=== PATIENT | female | born 1990 | race Asian ===

== ENCOUNTER → 2021-06-15 07:48 | Outpatient (CLI) | payer BC, SELFPAY ==
[2021-06-15 08:52] LABS: hCG Titer Quant., Serum 979 mIU/mL (1-3)
== END ==
PROVIDERS: Visit Provider Obstetrics & Gynecology
DX: N91.2 Amenorrhea, unspecified (principal)
CPT/HCPCS: 36415; 84702

== ENCOUNTER → 2021-06-18 13:14 | Outpatient (CLI) | payer BC, SELFPAY ==
[2021-06-18 16:10] LABS: hCG Titer Quant., Serum 3583 mIU/mL (1-3)
== END ==
PROVIDERS: Referring Provider Obstetrics & Gynecology; Visit Provider Obstetrics & Gynecology
DX: N91.2 Amenorrhea, unspecified (principal)
CPT/HCPCS: 36415; 84702

== ENCOUNTER → 2021-07-04 11:18 | Outpatient (CLI) | payer BC, SELFPAY ==
--- NOTE | 2021-07-04 11:19 | US_ITS ---
STUDY: FIRST TRIMESTER OBSTETRICAL ULTRASOUND REASON FOR EXAM: Female, 30 years old viability; r/o ectopic LMP: 05/10/2021 TECHNIQUE: Transvaginal TECHNICAL QUALITY: Adequate. PRIOR ULTRASOUND: None. FINDINGS: There is visualization of a single gestational sac in a normal intrauterine position. The mean sac diameter (MSD) measures 28 mm, indicating an estimated gestational age (EGA) of 8 weeks, 0 days. The gestational sac shape is within normal limits. There is a visualized yolk sac. The yolk sac measures 3 mm. The placenta is non-visualized. There is visualization of a live embryo. The crown-rump length (CRL) measures 13 mm, indicating an estimated gestational age (EGA) of 7 weeks, 4 days. There is demonstrated cardiac activity with a heart rate of 137 bpm. The estimated gestation age (EGA) by LMP is 7 weeks, 6 days. The estimated date of delivery (CHIKIS) by LMP is 02/14/2022. The estimated gestation age (EGA) by US is 7 weeks, 6 days. The estimated date of delivery (CHIKIS) by US is 02/14/2022. The uterus measures 8.5 x 6.3 x 6.8 cm. There is no demonstrated uterine fibroid. The cervix is closed. The right ovary measures 3.3 x 2.5 x 3.0 cm. There is no right ovarian cyst. There is no visualized right adnexal mass or complex lesion. The left ovary measures 2.7 x 1.4 x 2.2 cm. There is no left ovarian cyst. There is no visualized left adnexal mass or complex lesion. There is no fluid in the cul de sac. US/Transvaginal w/Preg US IMPRESSION: Living intrauterine of 7 weeks 6 days as described above. Electronically Signed: Akash Ray MD at 13:08 EDT Tel , Service support ,
== END ==
PROVIDERS: Referring Provider Nurse Practitioner Women's Health; Visit Provider Nurse Practitioner Women's Health
DX: Z34.91 Encounter for supervision of normal pregnancy, unspecified, first trimester (principal)
CPT/HCPCS: 76817

== ENCOUNTER → 2021-07-17 | Outpatient (CLI) | payer BC, SELFPAY ==
[2021-07-17 18:35] LABS: Amphetamine Urine VISTA NEGATIVE (<1000 ng/mL); Barbiturate Urine VISTA NEGATIVE (< 200 ng/mL); Benzodiazepine Urine VISTA NEGATIVE (< 200 ng/mL); Cocaine Urine VISTA NEGATIVE (< 300 ng/mL); Ecstacy Urine VISTA NEGATIVE (< 500 ng/mL); Methadone Urine VISTA NEGATIVE (< 300 ng/mL); PCP Urine VISTA NEGATIVE (< 25 ng/mL); THC Urine VISTA NEGATIVE (< 50 ng/mL); Vista UDS pH Range 4
[2021-07-20 22:06] LABS: Chlamydia By Nucleic Acid AMP Negative (Negative)
[2021-07-21 07:40] LABS: Gonococcus By Nucleic Acid AMP Negative (Negative)
[2021-07-22 17:56] LABS: HPV APTIMA, High Risk Negative (Negative)
== END | disposition home or self-care (01) ==
PROVIDERS: Referring Provider Obstetrics & Gynecology; Visit Provider Obstetrics & Gynecology
DX: O99.619 Diseases of the digestive system complicating pregnancy, unspecified trimester (principal); K21.9 Gastro-esophageal reflux disease without esophagitis; Z3A.00 Weeks of gestation of pregnancy not specified
CPT/HCPCS: 80307; 87086; 87088; 87491; 87591; 87624; 88175; G0145

== ENCOUNTER → 2021-07-25 08:21 | Outpatient (CLI) | payer BC, SELFPAY ==
[2021-07-25 09:09] LABS: Absolute Lymphocyte Count 1.42 X10^3/uL (0.83-4.51); Absolute Neutrophil Count 5.4 X10^3/uL (2.0-7.7); Basophil# 0.03 X10^3/uL; Basophil% 0.4 % (0-1); Eosinophil# 0.05 X10^3/uL; Eosinophils% 0.7 % (0-5); Hematocrit 35.9 % (37-47); Lymphocyte # 1.42 X10^3/ul (0.83-4.51); Lymphocyte % 19.3 % (19-41); Mean Corp Hgb Conc 33.4 g/dL (32-36); Mean Corpuscular Hgb 29.1 pg (27.0-32.0); Mean Corpuscular Volume 87.1 fL (81-99); Mean Platelet Vol. 11.4 fl (6.2-12.0); Monocyte# 0.46 X10^3/uL; Monocyte% 6.3 % (0-10); NRBC Flagged by Analyzer 0 % (0-5); Neutrophil # 5.36 X10^3/uL (2.7-7.7); Neutrophil % 72.8 % (47-70); Platelet Count 190 K/mm3 (150-450); RBC Distribution Width CV 12.7 % (11.6-14.6); RBC Distribution Width SD 40.1 fl (35.1-43.9); Red Blood Count 4.12 M/mm3 (4.2-5.4); White Blood Count 7.4 K/mm3 (4.4-11.0)
[2021-07-25 09:26] LABS: NATERA MAILED SPECIMEN
[2021-07-25 11:00] LABS: HIV - WCH Non-Reactive (Nonreactive); Hepatitis B Surface Antigen Non-Reactive (Nonreactive); Hepatitis C Antibody Non-Reactive (Nonreactive); Rubella IgG Reactive (Nonreactive); Syphilis Antibodies Non-reactive
== END ==
PROVIDERS: Referring Provider Obstetrics & Gynecology; Visit Provider Obstetrics & Gynecology
DX: Z31.430 Encounter of female for testing for genetic disease carrier status for procreative management (principal); O99.611 Diseases of the digestive system complicating pregnancy, first trimester; K21.9 Gastro-esophageal reflux disease without esophagitis; Z3A.00 Weeks of gestation of pregnancy not specified; Z81.0 Family history of intellectual disabilities
CPT/HCPCS: 85025; 86703; 86762; 86780; 86803; 86850; 86900; 86901; 87340

== ENCOUNTER → 2021-08-20 15:10 | Outpatient (CLI) | payer BC, SELFPAY | PROVIDERS: Referring Provider Obstetrics & Gynecology; Visit Provider Obstetrics & Gynecology | DX: Z36.9 Encounter for antenatal screening, unspecified (principal) | CPT/HCPCS: 36415 ==

== ENCOUNTER 2021-09-25 16:14 | Outpatient (CLI) | payer BC, SELFPAY ==
--- NOTE | 2021-09-25 16:24 | US_ITS ---
STUDY: SECOND AND THIRD TRIMESTER OBSTETRICAL ULTRASOUND - LIMITED REASON FOR EXAM: Female, 31 years old. anatomy PRIOR ULTRASOUND: None. TECHNIQUE: Transabdominal TECHNICAL QUALITY: Adequate. FINDINGS: There is a single intrauterine fetus. The fetus is in a breech presentation. There is demonstrated cardiac activity with a heart rate of 155 bpm. There is a normal amniotic fluid volume. The largest amniotic fluid pocket measures 5.1 cm. The placenta is posterior in location and is not low lying. There are Grade 0 placental changes. The cervix measures cm in length: 3.3. BIOMETRY: BPD: 46 mm: 19 weeks, 6 days HC: 178 mm: 20 weeks, 1 days AC: 141 mm: 19 weeks, 3 days FL: 31 mm: 19 weeks, 4 days CI: 78 FL/AC: 22 FL/BPD: 67 HC/AC: 1.3 age by current US: 19 weeks, 3 days. CHIKIS by current US: 5.28.22. Estimated weight: 301 grams, +/- 45 grams, 37 %. Age by LMP: 19 weeks, 5 days. CHIKIS by LMP: 5.26.22. ANATOMY: Gender: Female Cranium: Normal lateral ventricles. Normal choroid plexus. Normal cerebellum. Normal cisterna magna. Normal face, nose and lips. Chest: Normal 4-chamber heart. Abdomen/Pelvis: Normal diaphragm. Normal stomach. Normal abdominal wall. Normal cord insertion. Normal 3 vessel cord. Normal kidneys. Normal bladder. Spine: Normal cervical spine. Normal thoracic spine. Normal lumbar spine. Normal sacrum. Extremities: Normal bilateral upper extremities. Normal bilateral lower extremities. IMPRESSION: There is a single live intrauterine with a heart rate of 155 bpm. age by current US: 19 weeks, 3 days. CHIKIS by current US: 5.28.22. Estimated weight: 301 grams, +/- 45 grams, 37 %. Electronically Signed: Anurag Acuña MD at 19:30 EST , Service support , STUDY: SECOND AND THIRD TRIMESTER OBSTETRICAL ULTRASOUND - LIMITED REASON FOR EXAM: Female, 31 years old. anatomy PRIOR ULTRASOUND: None. TECHNIQUE: Transvaginal TECHNICAL QUALITY: Adequate. FINDINGS: There is a single intrauterine fetus. The fetus is in a breech presentation. There is demonstrated cardiac activity with a heart rate of 155 bpm. There is a normal amniotic fluid volume. The largest amniotic fluid pocket measures 5.1 cm. The placenta is posterior in location and is not low lying. There are Grade 0 placental changes. The cervix measures cm in length: 3.3. BIOMETRY: BPD: 46 mm: 19 weeks, 6 days HC: 178 mm: 20 weeks, 1 days AC: 141 mm: 19 weeks, 3 days FL: 31 mm: 19 weeks, 4 days CI: 78 FL/AC: 22 FL/BPD: 67 HC/AC: 1.3 age by current US: 19 weeks, 3 days. CHIKIS by current US: 5.28.22. Estimated weight: 301 grams, +/- 45 grams, 37 %. Age by LMP: 19 weeks, 5 days. CHIKIS by LMP: 5.26.22. ANATOMY: Gender: Female Cranium: Normal lateral ventricles. Normal choroid plexus. Normal cerebellum. Normal cisterna magna. Normal face, nose and lips. Chest: Normal 4-chamber heart. Abdomen/Pelvis: Normal diaphragm. Normal stomach. Normal abdominal wall. Normal cord insertion. Normal 3 vessel cord. Normal kidneys. Normal bladder. Spine: Normal cervical spine. Normal thoracic spine. Normal lumbar spine. Normal sacrum. Extremities: Normal bilateral upper extremities. Normal bilateral lower extremities. US/OB Anatomy Scan
== END 2021-09-25 23:59 | disposition short-term general hospital (02) ==
LOC: US 16:23
PROVIDERS: Referring Provider Obstetrics & Gynecology; Visit Provider Obstetrics & Gynecology
DX: Z36.89 Encounter for other specified antenatal screening (principal)
CPT/HCPCS: 76805; 76817

== ENCOUNTER 2021-11-20 15:15 | Outpatient (CLI) | payer BC, SELFPAY ==
[2021-11-20 15:37] LABS: Absolute Lymphocyte Count 1.18 X10^3/uL (0.83-4.51); Absolute Neutrophil Count 7.3 X10^3/uL (2.0-7.7); Basophil# 0.04 X10^3/uL; Basophil% 0.4 % (0-1); Eosinophil# 0.04 X10^3/uL; Eosinophils% 0.4 % (0-5); Hematocrit 32.8 % (37-47); Hemoglobin 11.1 g/dL (12.0-15.0); Lymphocyte # 1.18 X10^3/ul (0.83-4.51); Lymphocyte % 12.6 % (19-41); Mean Corp Hgb Conc 33.8 g/dL (32-36); Mean Corpuscular Hgb 31.3 pg (27.0-32.0); Mean Corpuscular Volume 92.4 fL (81-99); Mean Platelet Vol. 11.7 fl (6.2-12.0); Monocyte# 0.68 X10^3/uL; Monocyte% 7.3 % (0-10); NRBC Flagged by Analyzer 0 % (0-5); Neutrophil # 7.28 X10^3/uL (2.7-7.7); Neutrophil % 77.8 % (47-70); Platelet Count 180 K/mm3 (150-450); RBC Distribution Width CV 13.2 % (11.6-14.6); RBC Distribution Width SD 44.3 fl (35.1-43.9); Red Blood Count 3.55 M/mm3 (4.2-5.4); White Blood Count 9.4 K/mm3 (4.4-11.0)
[2021-11-20 15:47] LABS: Glucose Challenge Gest 1H 50g 167 mg/dL (70-140)
== END 2021-11-20 23:59 | disposition home or self-care (01) ==
LOC: PAVLAB 15:16
PROVIDERS: Referring Provider Obstetrics & Gynecology; Visit Provider Obstetrics & Gynecology
DX: Z34.00 Encounter for supervision of normal first pregnancy, unspecified trimester (principal)
CPT/HCPCS: 36415; 82950; 85025

== ENCOUNTER 2021-11-27 06:57 | Outpatient (CLI) | payer BC, SELFPAY ==
[2021-11-27 07:32] LABS: Glucose GTT-Gestation. Fasting 107 mg/dL (<105)
[2021-11-27 08:37] LABS: Glucose GTT-Gestational 1 Hr 207 mg/dL (<190)
[2021-11-27 09:41] LABS: Glucose GTT-Gestational 2 Hr 179 mg/dL (<165)
[2021-11-27 10:37] LABS: Glucose GTT-Gestational 3 Hr 139 L (<145)
== END 2021-11-27 23:59 | disposition home or self-care (01) ==
LOC: LAB 06:58
PROVIDERS: Referring Provider Obstetrics & Gynecology; Visit Provider Obstetrics & Gynecology
DX: O99.810 Abnormal glucose complicating pregnancy (principal)
CPT/HCPCS: 36415; 82951; 82952

== ENCOUNTER 2021-11-29 20:39 | Outpatient (CLI) | payer BC, SELFPAY ==
[2021-11-29 21:00] VITALS: BP 122/80; PULSE 87; TEMP 36.4; O2SAT 99
[2021-11-29 21:34] VITALS: BMI 28.8
--- NOTE | 2021-11-29 21:53 | OB.TRI.HP_ITS ---
HPI - General HPI Narrative IVAN PARKS, is a 31 F who presents to l&d with the complaint of spotting at 29 weeks gestation. The nurse was able to perform a bedside exam and noted no bleeding on exam. An NST and urine were ordered. Maternal Data Information CHIKIS Calculator Estimated Delivery Date Method Current WG Current Estimate 02/14/22 LMP (Certain) 30w 0d PFSH PFSH Medical History (Updated 12/06/21 @ 18:[address] 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 pets and animals: Yes Smoking Status: Never smoker second hand exposure: No alcohol intake: never substance use type: does not use seatbelt use: always do you feel safe at home: Yes additional social history: - Nick History 1 Elective abortions Hx Para Spontaneous abortions Hx # Term Pregnancies Ectopic pregnancies Hx # Pregnancies Multiple births # of living children Visit Details Expected Delivery Route/Plan Labor Preferences- CB/BF classes: [] labor support person: [] labor intervention preferences: [] pain management options preferred: [] cut cord/dad catch: [] : [] PP control planned: [] discussed possible routes of delivery and associated risks: [] special requests: [] Plans Covid status: pfizer vaccine Flu vaccine: given Tdap vaccine: [] Rhogam: [] LARC form signed: [] Problem list reviewed and updated with the most current plan of care details and appropriate orders placed. Relevant counseling for the gestational age provided. Continue routine care and follow up unless otherwise noted in visit notes/problem list details OB Flowsheet Initial Weight: 140 lb Date -?-?-?-?-?-?-?-?-?-?-?-?- EGA Weight BP Urine Prot -?-?-?-?-?-?-?-?-?-?-?-?- Glucose FHR FuHt Pres Dilation -?-?-?-?-?-?-?-?-?-?-?-?- Effaced St Visit Note 07/17/21 -?-?-?-?-?-?-?-?-?-?-?-?- 9w 5d 140 lb (+0 oz) 120/66 -?-?-?-?-?-?-?-?-?-?-?-?- 170 -?-?-?-?-?-?-?-?-?-?-?-?- SM- CRL cons wit h LMP SM- CRL 22mm cons with LMP 07/27/21 -?-?-?-?-?-?-?-?-?-?-?-?- 11w 1d 142 lb 6 oz (+2 lb 6 oz) 126/78 Negative -?-?-?-?-?-?-?-?-?-?-?-?- Negative -?-?-?-?-?-?-?-?-?-?-?-?- seen for low perry k pain 08/20/21 -?-?-?-?-?-?-?-?-?-?-?-?- 14w 4d 144 lb (+4 lb) 92/70 Negative -?-?-?-?-?-?-?-?-?-?-?-?- Negative 155 -?-?-?-?-?-?-?-?-?-?-?-?- SM- no vb amalia thao, discussed lab results, in amarilys will get testing when he gets back, AFP screen ordered 09/27/21 -?-?-?-?-?-?-?-?-?-?-?-?- 20w 0d 153 lb (+13 lb) 110/80 Negative -?-?-?-?-?-?-?-?-?-?-?-?- Negative 145 -?-?-?-?-?-?-?-?-?-?-?-?- JV- SM saw patie nt today. no complaints. AFP neg 10/22/21 -?-?-?-?-?-?-?-?-?-?-?-?- 23w 4d 161 lb 2 oz (+21 lb 2 oz) 120/80 Negative -?-?-?-?-?-?-?-?-?-?-?-?- Negative 145 24 -?-?-?-?-?-?-?-?-?-?-?-?- - no vb crampi ng 11/20/21 -?-?-?-?-?-?-?-?-?-?-?-?- 27w 5d 168 lb 8 oz (+28 lb 8 oz) 104/80 Trace -?-?-?-?-?-?-?-?-?-?-?-?- 250 g/dL 157 28 -?-?-?-?-?-?-?-?-?-?-?-?- JV- pt failed 1 hr. 3 hr ordered. They have lots of questions about plan, labor, cord blood banking, etc. partner genetic screen was negative. 11/29/21 -?-?-?-?-?-?-?-?-?-?-?-?- 29w 0d 170 lb 6 oz (+30 lb 6 oz) 122/80 Negative mg /dl (Negative) -?-?-?-?-?-?-?-?-?-?-?-?- -?-?-?-?-?-?-?-?-?-?-?-?- ROS Constitutional Constitutional: Reports systems reviewed and no addt'l complaints, except as documented Gastrointestinal Gastrointestinal: Denies bloating, constipation, cramping, diarrhea, nausea or vomiting Genitourinary Genitourinary: Reports other Details: Denies vaginal odor, vaginal bleeding, or vaginal discharge ; Denies difficulty urinating or flank pain NST FHR Rate Baby A Baseline: 140 Variability:: Moderate Accelerations:: 15 x 15 Decelerations:: None NST Reactive:: Yes FHR Category:: Category I Assessment & Plan (1) Vaginal bleeding during : COMMENT: no bleeding noted on exam after complaint in triage 11/29 PLAN: reactive NST, patient reassured and discharged to home Charges/Coding Multi Select Codes Urinary/Genital Urinary/Genital CPT Codes: 99060-08 non-stress test Interp
[2021-11-29 22:09] LABS: Color, Urine Yellow (Yellow); Glucose, Dipstick Normal (Normal); Ketone-Dipstick Negative (Negative); Leukocyte Esterase-Dipstick Negative /ul (Negative); Nitrite-Dipstick Negative (Negative); Occult Blood-Urine Negative /ul (Negative); Protein-Dipstick Negative (Negative); Specific Gravity, Urine 1.005 (1.002-1.030); Urine Bilirubin Dipstick Negative (Negative); Urine Clarity Sl. Cloudy (Clear); Urine Urobilinogen Normal (Normal)
== END 2021-11-29 23:59 | disposition home or self-care (01) ==
LOC: WP 21:35 → WPOUT 21:35
PROVIDERS: Visit Provider Obstetrics & Gynecology
DX: O26.853 Spotting complicating pregnancy, third trimester (principal); Z3A.29 29 weeks gestation of pregnancy
CPT/HCPCS: 59025; 59050; 81002; 99218; G0378

== ENCOUNTER 2021-12-18 16:57 | Outpatient (CLI) | payer BC, SELFPAY | END 2021-12-18 23:59 | disposition home or self-care (01) | LOC: LABSPEC 16:58 | PROVIDERS: Referring Provider Obstetrics & Gynecology; Visit Provider Obstetrics & Gynecology | DX: R35.0 Frequency of micturition (principal) | CPT/HCPCS: 87086; 87088 ==

== ENCOUNTER → 2022-01-17 | Outpatient (CLI) | payer BC, SELFPAY ==
--- NOTE | 2022-01-17 16:35 | US_ITS ---
STUDY: SECOND AND THIRD TRIMESTER OBSTETRICAL ULTRASOUND - LIMITED REASON FOR EXAM: Female, 31 years old. Gestational diabetes. Growth. LMP: 05/10/2021. PRIOR ULTRASOUND: 07/04/2021 and 09/25/2021 TECHNIQUE: Transabdominal TECHNICAL QUALITY: Adequate. FINDINGS: There is a single intrauterine fetus. The fetus is in a cephalic presentation. There is demonstrated cardiac activity with a heart rate of 143 bpm. There is a normal amniotic fluid volume. The largest amniotic fluid pocket measures 3.34 cm. The amniotic fluid index (FADI) is 10.94 cm. The placenta is 7 There are Grade 3 placental changes. The cervix measures 3.0 cm in length. BIOMETRY: BPD: 8.95 cm: 36 weeks, 1 days HC: 32.74 cm: 37 weeks, 1 days AC: 30.03 cm: 34 weeks, 0 days FL: 7.05 cm: 36 weeks, 0 days Age by LMP: 36 weeks, 0 days. CHIKIS by LMP: 02/14/2022.. age by initial US: 37 weeks, 0 days. CHIKIS by initial US: 02/14/2022. age by current US: 35 weeks, 5 days. CHIKIS by current US: 02/16/2022. Estimated weight: 2598 grams, +/- 390 grams, 28 percentile. Gender: Indeterminant US/OB Limited With Biometrics IMPRESSION: 1. Live single intrauterine at 35 weeks, 5 days. CHIKIS is 02/16/2022. There is adequate interval growth since the initial ultrasound. 2. EFW of 2598 g. 3. FADI of 10.94 cm. 4. Posterior grade 3 placenta. 5. Vertex presentation. Electronically Signed: Grant Doyle DO at 18:11 EDT ,
--- NOTE | 2022-01-17 16:35 | US_ITS ---
STUDY: OBSTETRICAL ULTRASOUND - BIOPHYSICAL PROFILE REASON FOR EXAM: Female, 31 years old. well being -- BPP PRIOR ULTRASOUND: 1.. TECHNIQUE: Transabdominal TECHNICAL QUALITY: Adequate. FINDINGS: There is a single intrauterine fetus. The fetus is in a cephalic presentation. There is demonstrated cardiac activity with a heart rate of 164 bpm. There is a normal amniotic fluid volume. The largest amniotic fluid pocket measures 5 cm. The amniotic fluid index (FADI) is 12.4 cm. The placenta is posterior in location and is not low lying. There are Grade 3 placental changes. Age by LMP: 36 weeks, 0 days. CHIKIS by LMP: 5.26.22. . BIOPHYSICAL PROFILE: Breathing Movements (FBM): 2 Gross Body Movements (GBM): 2 Tone (FT): 2 Amniotic Fluid Volume (AFV): 2 TOTAL SCORE: 8 / 8 US/Biophysical Prof W/O Non Stres IMPRESSION: Normal biophysical profile of 8/8. There is a single live intrauterine with a heart rate of 164 bpm. Age by LMP: 36 weeks, 0 days. CHIKIS by LMP: 5.26.22. Electronically Signed: Anurag Acuña MD at 18:10 EDT ,
== END | disposition home or self-care (01) ==
PROVIDERS: Referring Provider Obstetrics & Gynecology; Visit Provider Obstetrics & Gynecology
DX: O24.419 Gestational diabetes mellitus in pregnancy, unspecified control (principal)
CPT/HCPCS: 76816; 76819

== ENCOUNTER → 2022-02-06 | Outpatient (CLI) | payer BC, SELFPAY | END | disposition home or self-care (01) | PROVIDERS: Visit Provider Obstetrics & Gynecology | DX: Z34.03 Encounter for supervision of normal first pregnancy, third trimester (principal) | CPT/HCPCS: 87081 ==

== ENCOUNTER 2022-02-07 05:30 | Inpatient (IN) | payer BC, SELFPAY ==
[2022-02-07] VITALS (15 sets, daily range): BP systolic 98–135; BP diastolic 55–84; PULSE 62–89; RESP 16; TEMP 35.8–36.9; O2SAT 95–100; BMI 29.9
[2022-02-07] MEDS: Lactated Ringers 1,000 ML 999 ML IV (05:50)
[2022-02-07 06:10] LABS: Absolute Lymphocyte Count 1.52 X10^3/uL (0.83-4.51); Absolute Neutrophil Count 5.9 X10^3/uL (2.0-7.7); Basophil# 0.01 X10^3/uL; Basophil% 0.1 % (0-1); Eosinophil# 0.04 X10^3/uL; Eosinophils% 0.5 % (0-5); Hematocrit 38.2 % (37-47); Hemoglobin 12.8 g/dL (12.0-15.0); Lymphocyte # 1.52 X10^3/ul (0.83-4.51); Mean Corp Hgb Conc 33.5 g/dL (32-36); Mean Corpuscular Hgb 30.1 pg (27.0-32.0); Mean Corpuscular Volume 89.9 fL (81-99); Mean Platelet Vol. 12.3 fl (6.2-12.0); Monocyte# 0.51 X10^3/uL; Monocyte% 6.4 % (0-10); NRBC Flagged by Analyzer 0 % (0-5); Neutrophil # 5.86 X10^3/uL (2.7-7.7); Neutrophil % 73.4 % (47-70); Platelet Count 159 K/mm3 (150-450); RBC Distribution Width CV 13.2 % (11.6-14.6); RBC Distribution Width SD 43.8 fl (35.1-43.9); Red Blood Count 4.25 M/mm3 (4.2-5.4)
[2022-02-07 06:10] LABS: Bedside Glucose 179 mg/dL (74-106)
[2022-02-07] MEDS: Acetaminophen 500 MG Tablet 1000 MG PO ×3 (06:32→18:26)
[2022-02-07] MEDS: Insulin Lispro 100 UNIT/ML INSULN.PEN SC ×2 (06:57→07:35)
[2022-02-07] MEDS: Sodium Citrate/Citric Acid 30 ML UDC PO (06:58)
[2022-02-07] MEDS: Lactated Ringers 1,000 ML 150 ML IV (07:00)
--- NOTE | 2022-02-07 07:02 | NURSING ---
call placed to Evy BAUER to notify of patient BGT on admission 179. Patient states she drank an ensure on the way into unit and did not take her nighttime insulin last night. Orders for insulin regular 3 units and to retake BGT 30 minutes after administration. Will continue to monitor.
--- NOTE | 2022-02-07 07:09 | HP.PCM.OB_ITS ---
HPI - General General Date of Admission: 02/07/22 HPI Narrative IVAN PARKS, is a 31 y/o G1P)@ 39 weeks gestation who presents to L&D for a scheduled elective section. The patient's was complicated by insulin dependent diabetes that was treated with 22 units of R at dinner time only. The reason for her section is per her request due to difficulty with pelvic exams despite extensive in office counseling. This am her glucose level is 170, however she drank the recommended ensure drink and did not take her evening insulin. Nursing was given orders for 3 units of insulin now and recheck prior to incision. Maternal Data Information CHIKIS Calculator Estimated Delivery Date Method Current WG Current Estimate 02/14/22 LMP (Certain) 39w 0d PFSH PFSH Medical History Gestational diabetes Headache Home Medications multivitamin no.47-iron fum 27 mg-folate no.1 1 mg-dha 300 mg capsule 1 cap PO DAILY 07/05/21 [History Last Taken 02/05/22 22:00] insulin regular human 100 unit/mL (3 mL) subcutaneous pen 22 unit SUBCUT DINNER ml 12/27/21 [History Last Taken 02/05/22 20:00] docusate sodium [Colace] 100 mg PO DAILY 02/07/22 [History Last Taken 02/06/22 22:30] polyethylene glycol 3350 [Miralax] 17 g PO DAILY 02/07/22 [History Last Taken 02/06/22 16:30] Allergy/AdvReac Type Severity Reaction Status Date / Time No Known Allergies Allergy Verified 02/07/22 05:50 Family History Other Diabetes Hypertension Myocardial infarction Social History household members: spouse housing: house current occupational status: employed current occupation: scientific programmer pets and animals: Yes Smoking Status: Never smoker second hand exposure: No alcohol intake: never substance use type: does not use seatbelt use: always do you feel safe at home: Yes additional social history: - Nick History 1 Elective abortions Hx Para 0 Spontaneous abortions Hx # Term Pregnancies Ectopic pregnancies Hx # Pregnancies Multiple births # of living children Visit Details Expected Delivery Route/Plan Primary per patient request. discussed risks/benefits of vaginal vs . Labor Preferences- CB/BF classes: did the CB and BF classes labor support person: Nick labor intervention preferences: discussed induction with pit/cytotec - wants peanut ball, bar, hot shower, and intermittent monitoring/portable monitor in labor so may walk if possible., minimal pelvic exams if possible. pain management options preferred: epidural when pain gets bad cut cord/dad catch: 30 seconds only to allow blood to be available for the banking : yes PP control planned: undecided discussed possible routes of delivery and associated risks: pt is thinking of wanting an elective special requests: request cord blood banking [place] Plans Covid status: Secondbrain vaccine Flu vaccine: given Tdap vaccine: [] Rhogam: na LARC form signed: declined movement and labor precautions reviewed. Problem list reviewed and updated with the most current plan of care details and appropriate orders placed. Relevant counseling for the gestational age provided. Continue routine care and follow up unless otherwise noted in visit notes/problem list details OB Flowsheet Initial Weight: 140 lb Date -?-?-?-?-?-?-?-?-?-?-?-?- EGA Weight BP Urine Prot -?-?-?-?-?-?-?-?-?-?-?-?- Glucose FHR FuHt Pres Dilation -?-?-?-?-?-?-?-?-?-?-?-?- Effaced St Visit Note 07/17/21 -?-?-?-?-?-?-?-?-?-?-?-?- 9w 5d 140 lb (+0 oz) 120/66 -?-?-?--?-?-?-?-?-?-?-?-?- 170 -?-?-?-?-?-?-?-?-?-?-?-?- SM- CRL cons wit h LMP SM- CRL 22mm cons with LMP 07/27/21 -?-?-?-?-?-?-?-?-?-?-?-?- 11w 1d 142 lb 6 oz (+2 lb 6 oz) 126/78 Negative -?-?-?-?-?-?-?-?-?-?-?-?- Negative -?-?-?-?-?-?-?-?-?-?-?-?- seen for low perry k pain 08/20/21 -?-?-?-?-?-?-?-?-?-?-?-?- 14w 4d 144 lb (+4 lb) 92/70 Negative -?-?-?-?-?-?-?-?-?-?-?-?- Negative 155 -?-?-?-?-?-?-?-?-?-?-?-?- SM- no vb amalia thao, discussed lab results, in [place] will get testing when he gets back, AFP screen ordered 09/27/21 -?-?-?-?-?-?-?-?-?-?-?-?- 20w 0d 153 lb (+13 lb) 110/80 Negative -?-?-?-?-?-?-?-?-?-?-?-?- Negative 145 -?-?-?-?-?-?-?-?-?-?-?-?- JV- SM saw patie nt today. no complaints. AFP neg 10/22/21 -?-?-?-?-?-?-?-?-?-?-?-?- 23w 4d 161 lb 2 oz (+21 lb 2 oz) 120/80 Negative -?-?-?-?--?-?-?-?-?-?-?-?- Negative 145 24 -?-?-?-?-?-?-?-?-?-?-?-?- SM- no vb crampi ng 11/20/21 -?-?-?-?-?-?-?-?-?-?-?-?- 27w 5d 168 lb 8 oz (+28 lb 8 oz) 104/80 Trace -?-?-?-?-?-?-?-?-?-?-?-?- 250 g/dL 157 28 -?-?-?-?-?-?-?-?-?-?-?-?- JV- pt failed 1 hr. 3 hr ordered. They have lots of questions about plan, labor, cord blood banking, etc. partner genetic screen was negative. 11/29/21 -?-?-?-?-?-?-?-?-?-?-?-?- 29w 0d 170 lb 6 oz (+30 lb 6 oz) 122/80 Negative mg /dl (Negative) -?-?-?-?-?-?-?-?-?-?-?-?- -?-?-?-?-?-?-?-?-?-?-?-?- 12/07/21 -?-?-?--?-?-?-?-?-?-?-?-?- 30w 1d 170 lb (+30 lb) 110/72 Negative -?-?-?-?-?-?-?-?-?-?-?-?- Negative 145 30 -?-?-?-?-?-?-?-?-?-?-?-?- SM- no vb lof go od fm no reuglar ctx discussed diabetes diagnosis. 12/18/21 -?-?-?-?-?-?-?-?-?-?-?-?- 31w 5d 171 lb (+31 lb) 110/78 Trace -?-?-?-?-?-?-?-?-?-?-?-?- Negative 140 32 -?-?-?-?-?-?-?-?-?-?-?-?- JV- on novolin a t bedtime. no lof, vaginal bleeding, or dec fm. 12/21/21 -?-?-?-?-?-?-?-?-?-?-?-?- 32w 1d 171 lb (+31 lb) 122/76 Negative -?-?-?-?-?-?-?-?-?-?-?-?- Negative -?-?-?-?-?-?-?-?-?-?-?-?- 12/24/21 -?-?-?-?-?-?-?-?-?-?-?-?- 32w 4d 171 lb (+31 lb) -?-?-?-?-?-?-?-?-?-?-?-?- 140 32 -?-?-?-?-?-?-?-?-?-?-?-?- SM- no vb lof go od fm no reuglar ctx increasing insulin 12/27/21 -?-?-?-?-?-?-?-?-?-?-?-?- 33w 0d 172 lb 6 oz (+32 lb 6 oz) 110/64 Negative -?-?-?-?-?-?-?-?-?-?-?-?- Negative 140 -?-?-?-?-?-?-?-?-?-?-?-?- SM- nst 01/01/22 -?-?-?-?-?-?-?-?-?-?-?-?- 33w 5d 173 lb (+33 lb) 110/68 Negative -?-?-?-?-?-?-?-?-?-?-?-?- Negative 140 -?-?-?-?-?-?-?-?-?-?-?-?- MH-NST only reac tive 01/04/22 -?-?-?-?-?-?-?-?-?-?-?-?- 34w 1d 172 lb 8 oz (+32 lb 8 oz) 124/82 -?-?-?-?-?-?-?-?-?-?-?-?- 140 -?-?-?-?-?-?-?-?-?-?-?-?- SM- no vb lof go od fm no reuglar ctx BS still elevated with dinner- working on controlling. discussed right carpal tunnel symptoms 01/08/22 -?-?-?--?-?-?-?-?-?-?-?-?- 34w 5d 173 lb 6 oz (+33 lb 6 oz) 92/60 Negative -?-?-?-?-?-?-?-?-?-?-?-?- Negative 150 34 -?-?-?-?-?-?-?-?-?-?-?-?- JV- nst reactive . pt is requesting a primary cesrean section. after a long discussion, plan to proceed with schedule on February 07 if available. glucose levels are normal 01/11/22 -?-?-?-?-?-?-?-?-?-?-?-?- 35w 1d 173 lb (+33 lb) 124/80 Negative -?-?-?-?-?-?-?-?-?-?-?-?- Negative -?-?-?-?-?-?-?-?--?-?-?-?- 01/14/22 -?-?-?-?-?-?-?-?-?-?-?-?- 35w 4d 124/88 -?-?-?-?-?-?-?-?-?-?-?-?- 140 -?-?-?-?-?-?-?-?-?-?-?-?- SM- nst reactive 01/22/22 -?-?-?-?-?-?-?-?-?-?-?-?- 36w 5d 176 lb 8 oz (+36 lb 8 oz) 115/78 Negative -?-?-?-?-?-?-?-?-?-?-?-?- Negative 130 -?-?-?-?-?-?-?-?-?-?-?-?- JV- nst reactive . plan for GBS on friday. 2nd request sent to schedule elective section 01/25/22 -?-?-?-?-?-?-?-?-?-?-?-?- 37w 1d 176 lb 2 oz (+36 lb 2 oz) 106/75 2+ -?-?-?-?-?-?-?-?-?-?-?-?- Negative 140 -?-?-?-?-?-?-?-?-?-?-?-?- MH-NST only reac tive. MH-NST only reactive. Needs GBS done 01/2801/28/22 -?-?-?-?-?-?-?-?-?-?-?-?- 37w 4d 176 lb (+36 lb) 114/70 Negative -?-?-?-?-?-?-?-?-?-?-?-?- Negative 140 -?-?-?-?-?-?-?-?-?-?-?-?- MH-NST only reac tive 01/31/22 -?-?-?-?-?-?-?-?-?-?-?-?- 38w 0d 178 lb 6 oz (+38 lb 6 oz) 110/74 Negative -?-?-?-?-?-?-?-?-?-?-?-?- Negative 130 38 -?-?-?-?-?-?-?-?-?-?-?-?- JV- nst reactive , glucose levels are improving and she is now down to 22 units of R at dinner time. 02/05/22 -?-?-?-?-?-?-?-?-?-?-?-?- 38w 5d 178 lb 2 oz (+38 lb 2 oz) 110/78 Negative -?-?-?-?-?-?-?-?-?-?-?-?- Negative 140 39 -?-?-?-?-?-?-?-?-?-?-?-?- JV- nst reactive . GBS collected. surgery on 02/07/22 -?-?-?-?-?-?-?-?-?-?-?-?- 39w 0d 177 lb 7.554 oz (+37 lb 7.554 oz) 122/84 -?-?-?-?-?-?-?-?-?-?-?-?- -?-?-?-?-?-?-?-?-?-?-?-?- ROS Constitutional Constitutional: Denies change in weight, fatigue, fever(s), headache(s), poor appetite or weakness Eyes Eyes: Denies blurry vision, change in vision, seeing flashes or spots in vision ENT HEENT: Denies dizziness, headache(s), loss taste/smell or sore throat Cardiovascular Cardiovascular: Denies chest pain, dizziness, dyspnea, irregular heart rhythm, leg edema, palpitations, rapid heart rate or vomiting Respiratory/Chest Respiratory/Chest: Denies chest tightness, cough, dyspnea or breast pain Gastrointestinal Gastrointestinal: Denies abdominal pain, anorexia, constipation, cramping, diarrhea, hemorrhoids, vomiting or weight changes Genitourinary Genitourinary: Denies dysuria, flank pain, genital lesions, genital pain, urinary frequency or urinary urgency Musculoskeletal Musculoskeletal: Denies back pain, difficulty walking, joint pain, limited range of motion, muscle cramps or numbness Integumentary Integumentary: Denies lesions or unusual bruising Neurologic Neurologic: Denies abnormal movements, abnormal speech, dizziness, numbness, seizure-like activity or syncope Psychiatric Psychiatric: Denies anxiety, behavioral changes, change in appetite, change in libido, cognitive impairment, confusion, depression, difficulty concentrating, hallucinations or suicidal thoughts Endocrine Endocrinology: Denies excessive sweating, polydipsia or polyuria Hematologic/Lymphatic Hematologic/Lymphatic: Denies easy bleeding, easy bruising or lymphadenopathy Allergic/Immunologic Allergic/Immunologic: Denies itchy eyes, lip swelling, seasonal rhinorrhea, rhinitis, throat swelling, tongue swelling, eczemia, wheezing or asthma Vital Signs Vital Signs Vital Signs: 02/07/22 06:27 Temperature 98.1 F Temperature Source Temporal Pulse Rate 88 Respiratory Rate 16 Blood Pressure 122/84 H Blood Pressure Mean 96 Blood Pressure Source Monitor Blood Pressure Position Semi-Fowlers Blood Pressure Location Left Arm Pulse Ox 97 Oxygen Delivery Method Room Air Weight Weight: 177 lb 7.554 oz Body Mass Index (BMI) 29.9 Physical Exam Const alert, oriented x3, no apparent distress and healthy appearing General Appearance: cooperative; Negative for anxious HEENT normocephalic Face and Sinus: normal facial exam Eyes EOMs intact bilaterally and no scleral icterus General Eye: normal appearance of both eyes Neck full ROM and supple Lymph Lymphatic: no lymphadenopathy noted Chest Chest: abnormal inspection of the chest Resp normal respiratory effort Effort and Inspection: able to speak in complete sentences Cardio regular rate GI soft to palpation and non-tender Inspection: gravid Palpation: soft; Negative for tender Back/Spine no CVA tenderness Extremity normal to inspection, full ROM and no clubbing, cyanosis or edema General Extremity: Negative for calf tenderness or edema Skin Lesions: no lesions Rashes: no rashes Psych mental status grossly normal Labs Labs Labs: Blood Type O POSITIVE Antibody Screen NEGATIVE Hct 38.2 % (37-47) Hgb 12.8 g/dL (12.0-15.0) Obstetrics US Syphilis Total Ab Non-reactive Rubella IgG Antibody Reactive (Nonreactive) Hep Bs Antigen Non-Reactive (Nonreactive) Chlamydia DNA (BARBIE) Negative (Negative) Neisseria gonorrhoeae DNA (BARBIE) Negative (Negative) HIV 1&2 Antibody Non-Reactive (Nonreactive) Glucose 1 Hr 50 gm 167 mg/dL (70-140) H Miscellaneous Test Assessment & Plan (1) : QUALIFIERS: Weeks of gestation: 38 weeks Qualified Code(s): Z3A.38 - 38 weeks gestation of COMMENT: anatomy nl, genetic- low risk girl, carrier reviewed. 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 will be tested when her returns from [place]. neg. 254/254 (5) Gestational diabetes: QUALIFIERS: Gestational diabetes mellitus control: insulin- controlled Trimester: third trimester Qualified Code(s): O24.414 - Gestational diabetes mellitus in , insulin controlled COMMENT: on insulin now. start twice weekly nsts and growth scan at 36 weeks PLAN: plan for primary elective section today will cut the insulin in half at bedtime tonight ancef for antibiotic prophylaxis
--- NOTE | 2022-02-07 07:17 | PCM.DC ---
Discharge Instructions Diet Discharge Diet: No restrictions Activity Discharge Activity: May Not Drive (for 2 weeks or while taking narcotic pain medications.), May Shower and May Take a Tub Bath (in 7 days.) May resume sexual activity in: 4-6 weeks Weight Bearing Status: Full weight bearing Lifting Restrictions: 20 pounds Dressing / Incision Call your doctor if your incision/area has: Continuous Slow Oozing, Sudden Increased Bleeding, Increased Pain/ Swelling, Increased Redness and Foul Smelling Discharge Call your doctor if you observe: Fever of 101 or Higher and Using more than 1 pad per hour Suture Line Care: Avoid Pulling/Pushing and Avoid Pinching/Bending Cleanse incision/area with: Soap & Water and Keep Dressing Clean & Dry Follow Up Care Please Follow Up With: Hattie Cisneros DO When: Call [phone] to make an appointment for an incision check in 1-2 weeks. Test Results: Test results from this visit will be discussed in further detail at your follow-up appointment, if applicable. Discharge Plan Admission Admit Date/Time: 02/07/22 05:30 Primary Reason for Your Visit: section Attending Provider: Hattie Cisneros Primary Care Provider: Paulina Melendez,Gianan Primary Discharge Orders/Prescriptions Prescriptions: New ibuprofen 800 mg tablet 800 mg PO Q8H PRN (Reason: pain) 7 Days Qty: 30 RF: 0 oxycodone-acetaminophen [Percocet] 5-325 mg tablet 1 tab PO Q4H PRN (Reason: pain) 7 Days Qty: 30 RF: 0 Continued PNV-DHA 27 mg iron-1 mg -300 mg capsule 1 cap PO DAILY RF: 0 docusate sodium [Colace] 100 mg Capsule 100 mg PO DAILY RF: 0 polyethylene glycol 3350 [Miralax] 17 gram/dose Powder 17 g PO DAILY RF: 0 Discontinued Novolin R Flexpen 100 unit/mL (3 mL) insulin pen 22 unit subcut DINNER RF: 0 Referrals / Follow Up: Care Physician,No Primary [Primary Care Provider] - Disposition Disposition (needs filled in before D/C Order can be placed): Home, Self Care
[2022-02-07 07:30] LABS: Bedside Glucose 153 mg/dL (74-106)
[2022-02-07] MEDS: Cefazolin 2 GM in 0.9% Normal Saline 100 ML IV (07:51)
[2022-02-07] MEDS: Oxytocin 30 units/NS 500 ml 30 UNITS/500 ML IV.SOLN 167 UNITS IV (09:05)
[2022-02-07] MEDS: Ketorolac 30 MG/ML Syringe IV ×3 (09:50→21:24)
[2022-02-07 10:11] LABS: Bedside Glucose 95 mg/dL (74-106)
[2022-02-07] MEDS: Lactated Ringers 1,000 ML 100 ML IV (12:06)
[2022-02-07 16:41] LABS: Bedside Glucose 86 mg/dL (74-106)
--- NOTE | 2022-02-07 17:10 | NURSING ---
dr thomas made aware of blood sugar- insulin held
--- NOTE | 2022-02-07 18:02 | OP.PCM_ITS ---
Assessment & Plan (1) : QUALIFIERS: Weeks of gestation: 38 weeks Qualified Code(s): Z3A.38 - 38 weeks gestation of COMMENT: anatomy nl, genetic- low risk girl, carrier reviewed. AFP negative pt desires elective section scheduled for 02/07 @ 7:30am (2) Supervision of normal first : QUALIFIERS: Trimester: third trimester Qualified Code(s): Z34.03 - Encounter for supervision of normal first , third trimester COMMENT: PRR CHIKIS: 02/14/22 girl Spouse: Nick (3) GERD (gastroesophageal reflux disease): QUALIFIERS: Esophagitis presence: without esophagitis Qualified Code(s): K21.9 - Gastro-esophageal reflux disease without esophagitis COMMENT: tums/pepcid PRN (4) Gestational diabetes: QUALIFIERS: Gestational diabetes mellitus control: insulin- controlled Trimester: third trimester Qualified Code(s): O24.414 - Gestational diabetes mellitus in , insulin controlled COMMENT: on insulin now. 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 will be tested when her returns [facility]. neg. 254/254 Maternal Data Information CHIKIS Calculator Estimated Delivery Date Method Current WG Current Estimate 02/14/22 LMP (Certain) 39w 0d Details Operative Information Date of Procedure: 02/07/22 Pre-Operative Diagnosis: 39 weeks, gestational diabetes, , desires elective section Post-Operative Diagnosis: 39 weeks, gestational diabetes, , desires elective section Classification: Scheduled Procedure Type: low transverse personalized living assistant #1: Kari Hunter Type of Anesthesia: Spinal Anesthesiologist: Girma Austin Antibiotic Given: Ancef 2 grams IV x1 Drain: Zazueta to straight drain Estimated Blood Loss: 300cc Findings Description of Procedure: The patient is a 31 y/o @ 39 weeks who presented for primary elective C- section. Spinal anesthesia was placed without difficulty. Zazueta catheter was placed. The patient was placed in the dorsal supine position with leftward tilt. Patient was prepped and draped in the normal sterile fashion. Pfannenstiel skin incision was made with the scalpel and carried through to the underlying layer of fascia with the scalpel. Fascia was nicked in the midline and the incision extended laterally. The rectus bellies were dissected off superiorly and inferiorly with out complication both sharply and bluntly. The peritoneum was entered digitally. The incision was stretched and a low transverse uterine incision was made with the scalpel. The infant's head was delivered atraumatically followed by the anterior and posterior shoulders without complication the rest of the infant delivered. The cord was clamped and cut and the infant was handed off to awaiting nurse. The placenta was delivered spontaneously immediately following and was noted to be intact and have a three- vessel cord. Cord blood was collected for banking. The uterus was exteriorized cleared of all clots and debris, and the incision was closed in a double layer closure using #1 vicryl and #1 Monocryl. The ovaries and fallopian tubes were noted to be within normal limits. The uterus was returned to the maternal abdomen and gutters were cleared of all clots and debris. The peritoneum was closed with 3-0 Monocryl in a running fashion. Gloves were changed prior to fascial closure. Fascia was closed with 0 PDS in a running fashion. Subcutaneous tissue was copiously irrigated and the skin was closed with 3-0 Monocryl in a subcuticular fashion. Mepilex dressing was applied without complication. Patient was taken to recovery in stable condition. It was discussed with the patient that based on the clinical information obtained during this encounter, combined with her history, at this time I would recommend either or repeat section for future deliveries if further pregnancies are desired. Presentation: Positive for Vertex Amniotic Membrane Rupture Type: Artificial Amniotic Fluid Description: Clear Placental Delivery Description: Manual Removal Placenta Disposition: [facility] Cord Vessel Description: 3 Vessels Cord Entanglement: None A Gender: Female (1 minute): 8 (5 minute): 9 Delayed Cord Clamping: Yes Complications Risks of Surgery Discussed w/Patient: Bleeding, Anesthesia Risks, Infection, Need for Future C-Sections and Injury to surrounding structure(s) including bowel and bladder Complications: none Multi Select Codes Urinary/Genital Urinary/Genital CPT Codes: 33378 Delivery [facility]
[2022-02-07 23:21] LABS: Bedside Glucose 92 mg/dL (74-106)
[2022-02-08] MEDS: Acetaminophen 500 MG Tablet 1000 MG PO ×5 (00:14→23:42)
[2022-02-08 00:30] VITALS: BP 108/69; PULSE 83; RESP 16; TEMP 36.7; O2SAT 96
[2022-02-08] MEDS: Ketorolac 30 MG/ML Syringe IV (03:28)
[2022-02-08] MEDS: 0.9% Saline Lock 10 ML Syringe IV (03:29)
[2022-02-08 03:34] VITALS: BP 105/65; PULSE 82; RESP 16; TEMP 37.1; O2SAT 97
[2022-02-08 06:24] LABS: Hematocrit 31.9 % (37-47); Hemoglobin 10.6 g/dL (12.0-15.0); Mean Corp Hgb Conc 33.2 g/dL (32-36); Mean Corpuscular Hgb 30.7 pg (27.0-32.0); Mean Corpuscular Volume 92.5 fL (81-99); Mean Platelet Vol. 11.5 fl (6.2-12.0); Platelet Count 112 K/mm3 (150-450); RBC Distribution Width CV 13.2 % (11.6-14.6); RBC Distribution Width SD 44.7 fl (35.1-43.9); Red Blood Count 3.45 M/mm3 (4.2-5.4); White Blood Count 8.5 K/mm3 (4.4-11.0)
[2022-02-08 06:26] LABS: Bedside Glucose 75 mg/dL (74-106)
--- NOTE | 2022-02-08 08:19 | PCM.PN.OB ---
Subjective Subjective Patient doing well without complaints. Tolerating PO. Ambulating and voiding without difficulty. Feeding well. Denies chest pain, shortness of breath, calf pain/swelling, fevers, chills, lightheadedness. Objective Data Objective Data Vital Signs: Vital Signs Temp Pulse Resp BP Pulse Ox 98.7 F 82 16 105/65 97 02/08/22 03:34 02/08/22 03:34 02/08/22 03:34 02/08/22 03:34 02/08/22 03:34 Oxygen Delivery Method Room Air Weight: 177 lb 7.554 oz Body Mass Index (BMI) 29.9 Intake & Output: Intake and Output for Last 24 Hours 02/06/22 02/07/22 02/08/22 23:59 23:59 23:59 Intake Total 2965.83 / 2965.83 Output Total 805 / 805 1150 / 1150 Balance 2160.83 / 2160.83 -1150 / -1150 Lab / Micro Data Result Diagrams: 02/08/22 06:15 Labs: Laboratory Results - last 24 hr 02/07/22 09:49: POC Glucose 95 02/07/22 16:35: POC Glucose 86 02/07/22 23:05: POC Glucose 92 02/08/22 06:09: POC Glucose 75 02/08/22 06:15: WBC 8.5, RBC 3.45 L, Hgb 10.6 L, Hct 31.9 L, MCV 92.5, MCH 30.7, MCHC 33.2, RDW Std Deviation 44.7 H, RDW Coeff of Tierney 13.2, Plt Count 112 L, MPV 11.5 Micro: Microbiology 02/07/22 05:50 Nasal Secretion SARS-CoV-2 Antigen (Rapid) - Final ROS Constitutional Constitutional: Reports systems reviewed and no addt'l complaints, except as documented Cardiovascular Cardiovascular: Denies chest pain, dizziness, dyspnea or irregular heart rhythm Respiratory/Chest Respiratory/Chest: Denies cough, pain on inspiration or shortness of breath at rest Gastrointestinal Gastrointestinal: Denies abdominal pain, nausea or vomiting Genitourinary Genitourinary: Denies burning urination Musculoskeletal Musculoskeletal: Denies muscle cramps, muscle spasms or muscle weakness Neurologic Neurologic: Denies confusion, dizziness, headache(s) or lack of coordination Psychiatric Psychiatric: Denies anxiety, behavioral changes or depression Physical Exam HEENT normocephalic Resp normal respiratory effort and normal air movement GI soft to palpation, non-tender and non-distended Rectal Exam: other Other Details: Incision is clean, dry, and intact no CVA tenderness Extremity normal to inspection General Extremity: edema bilateral (trace ) Assessment & Plan (1) Status post delivery: COMMENT: elective section 02/07/22- JV PLAN: s/p LTCS PPD # 1 1. routine post care 2. breast feeding- support given 3. rh positive 4. rubella immune
[2022-02-08 08:50] VITALS: BP 113/70; PULSE 72; RESP 16; TEMP 36.1; O2SAT 97
[2022-02-08] MEDS: Senna/Docusate Sodium 1 Tablet PO (10:16)
[2022-02-08] MEDS: Prenatal Vits Tablet 1 TABLET PO (10:17)
[2022-02-08] MEDS: Ibuprofen 600 MG Tablet PO ×3 (10:17→23:42)
[2022-02-08 13:47] VITALS: BP 107/66; PULSE 71; RESP 16; TEMP 36.6; O2SAT 97
[2022-02-08] MEDS: oxyCODONE 5 MG Tablet PO ×2 (13:55→18:07)
[2022-02-08 20:28] VITALS: BP 100/63; PULSE 85; RESP 16; TEMP 36.8; O2SAT 95
[2022-02-09 02:57] VITALS: BP 110/64; PULSE 70; RESP 14; TEMP 37.1; O2SAT 96
[2022-02-09] MEDS: Ibuprofen 600 MG Tablet PO ×2 (06:06→12:21)
[2022-02-09] MEDS: Acetaminophen 500 MG Tablet 1000 MG PO ×2 (06:06→12:22)
[2022-02-09 08:31] VITALS: BP 133/85; PULSE 69; RESP 16; TEMP 36.6; O2SAT 100
[2022-02-09 08:50] VITALS: BP 125/78
--- NOTE | 2022-02-09 08:53 | PCM.PN.OB ---
Subjective Subjective Patient doing well without complaints. Tolerating PO. Ambulating and voiding without difficulty. Feeding well. Denies chest pain, shortness of breath, calf pain/swelling, fevers, chills, lightheadedness. Objective Data Objective Data Vital Signs: Vital Signs Temp Pulse Resp BP Pulse Ox 97.9 F 69 16 133/85 H 100 02/09/22 08:31 02/09/22 08:31 02/09/22 08:31 02/09/22 08:31 02/09/22 08:31 Oxygen Delivery Method Room Air Weight: 177 lb 7.554 oz Body Mass Index (BMI) 29.9 Intake & Output: Intake and Output for Last 24 Hours 02/07/22 02/08/22 02/09/22 23:59 23:59 23:59 Intake Total 2965.83 / 2965.83 Output Total 805 / 805 1150 / 1150 Balance 2160.83 / 2160.83 -1150 / -1150 Lab / Micro Data Result Diagrams: 02/08/22 06:15 Micro: Microbiology 02/07/22 05:50 Nasal Secretion SARS-CoV-2 Antigen (Rapid) - Final ROS Constitutional Constitutional: Reports systems reviewed and no addt'l complaints, except as documented Cardiovascular Cardiovascular: Denies chest pain, dizziness, dyspnea or irregular heart rhythm Respiratory/Chest Respiratory/Chest: Denies cough, pain on inspiration or shortness of breath at rest Gastrointestinal Gastrointestinal: Denies abdominal pain, nausea or vomiting Genitourinary Genitourinary: Denies burning urination Musculoskeletal Musculoskeletal: Denies muscle cramps, muscle spasms or muscle weakness Neurologic Neurologic: Denies confusion, dizziness, headache(s) or lack of coordination Psychiatric Psychiatric: Denies anxiety, behavioral changes or depression Physical Exam HEENT normocephalic Resp normal respiratory effort and normal air movement GI soft to palpation, non-tender and non-distended Rectal Exam: other Other Details: Incision is clean, dry, and intact no CVA tenderness Extremity normal to inspection General Extremity: edema bilateral (trace ) Assessment & Plan (1) Status post delivery: COMMENT: elective section 02/07/22- JV (2) GERD (gastroesophageal reflux disease): QUALIFIERS: Esophagitis presence: without esophagitis Qualified Code(s): K21.9 - Gastro-esophageal reflux disease without esophagitis COMMENT: tums/pepcid PRN PLAN: s/p LTCS PPD # 2 1. routine post care 2. breast feeding- support given 3. rh positive 4. rubella immune 5. dc to home today
--- NOTE | 2022-02-09 08:53 | NURSING ---
Pt initial BP was slightly elevated. Pt rating pain a 6. Had patient rest for a little bit and then took BP again. Dr. Cisneros in room and aware of BP. Discussed with patient that elevation is probably pain related.
[2022-02-09 12:00] VITALS: BP 132/80; PULSE 70; RESP 16; TEMP 36.3; O2SAT 97
[2022-02-09] MEDS: Docusate Sodium 100 MG Capsule PO (12:22)
--- NOTE | 2022-02-14 13:49 | NURSING ---
Mother doing well , saw Emma, states was so helpful in the hospital
== END 2022-02-09 14:00 | disposition home or self-care (01) | DRG 788 ==
PROVIDERS: Admitting Provider Obstetrics & Gynecology; Visit Provider Obstetrics & Gynecology
PROC: 10D00Z1 Extraction of Products of Conception, Low, Open Approach (ICD-10-PCS; CPT 59514; principal; 2022-02-07 07:15)
DX: O24.424 Gestational diabetes mellitus in childbirth, insulin controlled (principal); K21.9 Gastro-esophageal reflux disease without esophagitis; Z79.4 Long term (current) use of insulin; Z3A.39 39 weeks gestation of pregnancy; O99.62 Diseases of the digestive system complicating childbirth; Z37.0 Single live birth; Z14.8 Genetic carrier of other disease
CPT/HCPCS: 59050; 82962; 85025; 85027; 86850; 86900; 86901; 87426; 99218; J7120; A4216; G0378; J2405

== ENCOUNTER → 2022-03-27 | Outpatient (CLI) | payer BC, SELFPAY ==
[2022-03-27 11:58] LABS: Glucose 2 Hour Postprandial 101 mg/dL (<140)
== END | disposition home or self-care (01) ==
LOC: LAB 08:32
PROVIDERS: Visit Provider Obstetrics & Gynecology
DX: O24.419 Gestational diabetes mellitus in pregnancy, unspecified control (principal); Z3A.00 Weeks of gestation of pregnancy not specified
CPT/HCPCS: 36415; 82950